=== PATIENT | male | born 1960 | race Caucasian/White ===

== ENCOUNTER 2017-05-27 07:58 | Emergency (ER) | payer OTHER ==
[~2017-05-27] VITALS: Ht 177.8 cm; Wt 88.5 kg
[~2017-05-27 07:58] MED LIST: ENDOCET 325 MG-1 TA1 PO; FLOMAX0.4 M1 PO; IBUPROFEN800 M1 PO; ZOFRAN ODT4 M1 PO
[2017-05-27] MEDS ORDERED: FINASTERIDE5 M1 PO (08:26)
--- NOTE | 2017-05-27 09:20 | ED GENERAL ADULT ---
History of Present Illness General Chief Complaint: General Adult Stated Complaint: DEYHDRATION Source: patient, family Exam Limitations: no limitations Vital Signs & Intake/Output Vital Signs & Intake/Output Vital Signs Date Time Temp Pulse Resp B/P B/P Pulse O2 O2 Flow FiO2 Mean Ox Delivery Rate 05/27 1021 98.0 65 19 119/73 98 Room Air 05/27 0812 97.2 62 20 121/72 100 Room Air Allergies Coded Allergies: NO KNOWN ALLERGIES (08/29/14) Reconcile Medications Finasteride 5 MG TABLET 1 TAB PO DAILY PROSTATE (Reported) Tamsulosin HCl (Flomax) 0.4 MG CAP.ER.24H 1 CAP PO DAILY PROSTATE (Reported) Triage Note: PT TO ED "I THINK I'M DEHYDRATED", WENT ON A 2 DAY BACK PACKING TRIP WITH MY SON, DIDN'T DRINK ENOUGH, CAME HOME TAKING GATORADE AND TAKING ELECTROLYTE PILLS, NOW DIARRHEA AND VOMITING. Triage Nurses Notes Reviewed? yes Onset: Gradual Duration: day(s): Timing: recent history Severity: moderate HPI: 57-year-old male presents emergency department complaining of left flank pain yesterday. Patient also complaining of nausea and vomiting this morning. Patient states that he was on a backpacking trip this weekend and thinks he got dehydrated during the trip as he was not drinking enough water. His pain feels similar to flank pain he experienced secondary to dehydration after a cycling raise a few years ago however this pain is less severe. He states at that time they tested for kidney stone which was negative and his symptoms resolved after receiving IV fluids. He states that water that he drank on his packing trip was filtered and cleaned with pills. He denies changes in urine color, dysuria, frequency. He is not currently nauseous, he has no pain currently. He also states that about 1-2 weeks ago he fell while walking his dog and still has mild pain in his left rib cage. He denies abdominal pain, diarrhea, fevers, chills, rash. (MACARENA MERAZ,BALTAZAR SARAVIA) Past History Travel History Traveled to [place] past 21 day No Medical History Any Pertinent Medical History? see below for history Neurological: NONE EENT: NONE Cardiovascular: ABNORMAL EKG Respiratory: NONE Gastrointestinal: NONE Hepatic: NONE Renal: benign prost hyperplasia, ?KIDNEY STONE Musculoskeletal: NONE Psychiatric: NONE Endocrine: NONE Blood Disorders: NONE Cancer(s): NONE RADIO TECHNICIAN/Reproductive: bacterial vaginitis Surgical History Surgical History: hernia repair-inguinal, RIGHT CLAVICLE FRACTURE PATELLAR TENDON REPAIRED Psychosocial History What is your primary language [place] Tobacco Use: Never used ETOH Use: denies use Illicit Drug Use: denies illicit drug use Family History Hx Contributory? No (BALTAZAR FIORE PA-C) Review of Systems Review of Systems Constitutional: Reports: see HPI. EENTM: Reports: no symptoms. Respiratory: Reports: no symptoms. Cardiovascular: Reports: no symptoms. GI: Reports: see HPI. Genitourinary: Reports: see HPI. Musculoskeletal: Reports: see HPI. Skin: Reports: no symptoms. Neurological/Psychological: Reports: no symptoms. Hematologic/Endocrine: Reports: no symptoms. Immunologic/Allergic: Reports: no symptoms. All Other Systems: Reviewed and Negative (BALTAZAR FIORE PA-C) Physical Exam Physical Exam General Appearance: well developed/nourished, no apparent distress, alert, awake Comments: Well-developed well-nourished person in no acute distress HEENT: HEAD is atraumatic. moist mucous membranes. Neck: Supple, normal range of motion without pain or tenderness Back: Nontender, no CVA tenderness. Full range of motion Cardiovascular: Regular rate and rhythms no murmurs rubs or gallops, normal JVP Respiratory: left sided tenderness of anterior ribcage, no skin changes, There were no bony deformities, no asymmetry. No respiratory distress. Patient speaking in full complete sentences. Breath sounds clear to auscultation bilaterally: NO W/R/R Abdomen: Soft, nontender nondistended, no appreciable organomegaly. Normal bowel sounds. No rebound/guarding, No appreciable enlargement of the abdominal aorta, No ascites. Extremity: No edema, full range of motion of extremities, normal and equal pulses bilaterally, 5 out of 5 strength noted to bilateral upper and lower extremities Neuro: Alert oriented x3, motor sensory normal, There were no obvious focal neurologic abnormalities. Skin: No appreciable rash on exposed skin, skin is warm and dry. Psych: Mood and affect is normal, memory and judgment is normal. Core Measures ACS in differential dx? No CVA/TIA Diagnosis: No Severe Sepsis Present: No Septic Shock Present: No (BALTAZAR FIORE PA-C) Progress Differential Diagnoses I considered the following diagnoses in my evaluation of the patient: [ dehydration, electrolyte abnormality, kidney stone, pyelonephritis, urinary tract infection, musculoskeletal pain, rib fracture, waterborne parasite infection, gastroenteritis] Initial ED EKG: none (MACARENA MERAZ,BALTAZAR SARAVIA) Plan of Care: Orders Procedure Date/time Status URINALYSIS 05/27 916 Complete MAGNESIUM 05/27 916 Complete COMPREHENSIVE METABOLIC PANEL 05/27 916 Complete CBC WITHOUT DIFFERENTIAL 05/27 916 Complete Laboratory Tests 05/27/17924: Anion Gap 10, Estimated GFR > 60, BUN/Creatinine Ratio 29.0 H, Glucose 103 H, Calcium 9.4, Magnesium 2.1, Total Bilirubin 1.0, AST 45, ALT 51, Alkaline Phosphatase 60, Total Protein 6.6, Albumin 4.5, Globulin 2.1, Albumin/Globulin Ratio 2.1, CBC w Diff NO MAN DIFF REQ, RBC 4.87, MCV 87.4, MCH 29.6, RDW 13.9, MPV 10.7 H, Gran % 78.0 H, Lymphocytes % 12.6 L, Monocytes % 7.3, Eosinophils % 0.8, Basophils % 1.3, Absolute Granulocytes 8.4 H, Absolute Lymphocytes 1.4, Absolute Monocytes 0.8 H, Absolute Eosinophils 0.1, Absolute Basophils 0.1, PUBS MCHC 33.8, Urine Color YEL, Urine Clarity CLEAR, Urine pH 6.0, Ur Specific Emma 1.015, Urine Protein NEG, Urine Ketones NEG, Urine Nitrite NEG, Urine Bilirubin NEG, Urine Urobilinogen 0.2, Ur Leukocyte Esterase NEG, Ur Microscopic SEDIMENT EXAMINED, Urine RBC 3-5, Urine WBC RARE, Ur Epithelial Cells RARE, Urine Bacteria RARE H, Hyaline Casts RARE H, Urine Mucus RARE, Urine Hemoglobin MOD H, Urine Glucose NEG The patient was discussed with Dr. Yap. He was given 1 L of normal saline for fluid replacement given his nausea and vomiting and history of dehydration following strenuous activity. The patient has no CVA tenderness, his labs are within normal limits, his urinalysis does not indicate acute urinary tract infection. The patient was given the option for further urine to evaluate for possible kidney stone and he elects to observe for further pain or symptoms at home, his is a RN and understands the signs and symptoms of kidney stones or infection. They will follow up with any worsening symptoms or concerns. The patient would not like a prescription for his nausea, he does not feel currently nauseous. Patient's vital signs are within normal limits, he is nontoxic appearing, he is in no acute distress. Patient is in agreement with the plan of care. (MACARENA MERAZ,BALTAZAR SARAVIA) Departure Departure Disposition: HOME OR SELF CARE Condition: Stable Clinical Impression Primary Impression: Renal colic Secondary Impressions: Nausea & vomiting Referrals: RACHELE JUNG,PRASHANTH Spicer (PCP/Family) Additional Instructions: Increase your fluids, take Zofran as discussed for further nausea and vomiting. Monitor for signs of worsening symptoms including further back pain, abdominal pain, increased vomiting, painful urination. Return with any worsening symptoms or concerns. Follow up with your primary care doctor, call to inform them that you were seen today and the results of todays visit. Departure Forms: Customer Survey General Discharge Information (BALTAZAR FIORE PA-C) PA/AUTO GARAGE ATTENDANT Co-Sign Statement Statement: ED Attending supervision documentation- [] I saw and evaluated the patient. I have also reviewed all the pertinent lab results and diagnostic results. I agree with the findings and the plan of care as documented in the PA's/AUTO GARAGE ATTENDANT's documentation. [X] I have reviewed the ED Record and agree with the PA's/AUTO GARAGE ATTENDANT's documentation. [] Additions or exceptions (if any) to the PAs/AUTO GARAGE ATTENDANT's note and plan are summarized below: [] (DARCY JUNG,MARTINA Fowler) Critical Care Note Critical Care Note Critical Care Time: non-applicable (BALTAZAR FIORE PA-C)
[2017-05-27 09:44] LABS: ABSOLUTE BASOPHIL COUNT 0.1 /CUMM (0.0-0.2); ABSOLUTE EOSINOPHIL COUNT 0.1 /CUMM (0.0-0.7); ABSOLUTE GRANULOCYTE CT 8.4 /CUMM (1.4-6.5); ABSOLUTE LYMPH COUNT 1.4 /CUMM (1.2-3.4); ABSOLUTE MONOCYTE COUNT 0.8 /CUMM (0.10-0.60); BASOPHIL % 1.3 % (0.0-2.0); EOSINOPHIL % 0.8 % (0-5); HEMATOCRIT 42.6 % (42-52); MEAN CORPUSCULAR HGB 29.6 PG (27.0-31.0); MEAN CORPUSCULAR HGB CONC 33.8 G/DL (33.0-37.0); MEAN CORPUSCULAR VOLUME 87.4 FL (80.0-94.0); MEAN PLATELET VOLUME 10.7 FL (7.4-10.4); PLATELET COUNT 165 /CUMM (130-400); RBC DISTRIBUTION WIDTH 13.9 % (11.5-14.5); RED BLOOD CELL CT 4.87 /CUMM (4.70-6.10); WHITE BLOOD CELL COUNT 10.8 /CUMM (4.8-10.8)
[2017-05-27 10:21] VITALS: BP 119/73
== END 2017-05-27 10:36 ==
LOC: ERH 07:58
PROVIDERS: Physician Assistant
DX: N23 Unspecified renal colic (principal)
CPT/HCPCS: 81001